=== PATIENT | male | born 1930 | race Caucasian/White ===

== ENCOUNTER 2020-06-03 09:33 | Inpatient (IN) | payer MEDICARE ==
[2020-05-31 11:07] VITALS: BMI 36.5
[~2020-06-03 09:33] MED LIST: Lidocaine 1% w/Epinephrine 1:100K 20 ML VIAL ONE
[2020-06-03] MEDS ORDERED: Lidocaine 1% MPF 2 ML VIAL ONE (09:38)
[2020-06-03] MEDS ORDERED: Dexamethasone 20 MG/5 ML VIAL ONE (09:42)
[2020-06-03] MEDS ORDERED: Rocuronium Bromide 10 MG/ML (10ML VIAL) ONE (09:42)
[2020-06-03] MEDS ORDERED: Fentanyl 100 MCG/2 ML VIAL ONE ×5 (09:42→14:13)
[2020-06-03] MEDS ORDERED: PROPOFOL 20 ML ONE ×2 (09:42→12:58)
[2020-06-03] MEDS ORDERED: Ondansetron PF 4 MG/2 ML Vial ONE (09:42)
[2020-06-03] MEDS ORDERED: Glycopyrrolate 0.2 MG/ML 5 ML SYRINGE ONE (09:42)
[2020-06-03] MEDS ORDERED: SUGAMMADEX SODIUM 500 MG/5 ML VIAL ONE (09:45)
[2020-06-03] MEDS ORDERED: CEFAZOLIN 1 GM VIAL ONE (10:25)
[2020-06-03] MEDS ORDERED: Phenylephrine 10 MG/ML VIAL ONE (10:25)
[2020-06-03] MEDS ORDERED: Esmolol 100 MG/10 ML VIAL ONE (12:38)
[2020-06-03] MEDS ORDERED: Labetalol HCl 100 MG/20 ML VIAL ONE (12:44)
[2020-06-03] MEDS ORDERED: Mupirocin 2% Ointment 22 GM Tube ONE (13:31)
[2020-06-03] MEDS ORDERED: HYDROcodone/Acetaminophen 5/325 mg Tablet PO PRN (13:57)
[2020-06-03] MEDS ORDERED: Ondansetron PF 4 MG/2 ML Vial IVP PRN (13:57)
[2020-06-03] MEDS ORDERED: Acetaminophen 325 MG TAB PO PRN ×2 (13:57→15:30)
[2020-06-03] MEDS ORDERED: Morphine 4 MG/ML VIAL SLOW IVP PRN (14:09)
[2020-06-03] MEDS ORDERED: Loperamide HCl 2 MG CAP PO PRN (14:15)
[2020-06-03] MEDS ORDERED: Metoprolol Tartrate 5 MG/5 ML VIAL ONE ×3 (14:23→15:06)
[2020-06-03] MEDS ORDERED: HYDROcodone/Acetaminophen 7.5/325 mg Tablet PO PRN (15:30)
[2020-06-03] MEDS ORDERED: Diltiazem HCl 125 MG, Admixture Fee 1 EACH in Sodium Chloride 0.9% 100 ML IVPB SCH (15:30)
[2020-06-03] MEDS ORDERED: Bisacodyl 5 MG TAB PO PRN (15:30)
[2020-06-03] MEDS: Furosemide 40 MG TAB PO SCH (16:56)
[2020-06-03] MEDS: Gabapentin 300 MG CAP PO SCH ×2 (17:00→20:20)
[2020-06-03] MEDS ORDERED: Chloraseptic Spray 180 ml Bottle PO PRN (17:26)
[2020-06-03 17:34] LABS: Anion Gap 15 mmol/L (10-20); BUN (Urea Nitrogen) 30 mg/dL (8.4-25.7); Calc. Creatinine Clearance 49 mL/min (70-130); Calcium 8.9 mg/dL (7.8-10.44); Carbon Dioxide 25 mmol/L (23-31); Chloride 102 mmol/L (98-107); Glucose 296 mg/dL (83-110); Potassium 5.1 mmol/L (3.5-5.1); Sodium 137 mmol/L (136-145)
[2020-06-03 17:38] LABS: Hemoglobin 14.4 g/dL (13.5-17.5); Mean Corpuscular HGB CONC 34.3 g/dL (32.0-36.0); Mean Corpuscular Hemoglobin 36.4 pg (27.0-33.0); Mean Corpuscular Volume 106.1 fl (81.2-95.1); Mean Platelet Volume 12.3 fl (7.4-10.4); Platelet Count 81 10x3/uL (150-450); RBC Distribution Width 14.6 % (11.5-14.5); Red Blood Cell (RBC) Count 3.96 10x6/uL (4.32-5.72); White Blood Cell (WBC) Count 9.5 10x3/uL (3.5-10.5)
[2020-06-03 18:26] LABS: Macrocytosis SLIGHT = 6-15 cells (100X) (0-5/hpf); Platelet Morphology Comment Appears Decreased
[2020-06-03] MEDS ORDERED: CEFAZOLIN 2 GM in Premix Bag 1 BAG IVPB SCH (18:30)
[2020-06-03] MEDS: CEFAZOLIN 1 GM in Sodium Chloride 0.9% 100 ML IVPB SCH (19:05)
[2020-06-03] MEDS: Famotidine 20 MG TAB PO SCH (20:20)
[2020-06-03] MEDS: Calcium Carbonate 500 MG ChewTAB PO SCH (20:20)
[2020-06-03] MEDS: Losartan Potassium 50 MG TAB PO SCH (20:20)
[2020-06-03] MEDS: prednisoLONE 1% Ophth Susp 5 ml Bottle EA EYE SCH (20:21)
[2020-06-03] MEDS: Metoprolol Tartrate 50 MG TAB PO SCH (20:21)
[2020-06-03] MEDS ORDERED: Calcium Carbonate 500 MG TAB PO SCH (21:00)
[2020-06-03 21:03] LABS: Bilirubin Neg (Negative); Blood, Urine Negative (Negative); Clarity Clear (Clear); Glucose, Urine (Dipstick) 50 mg/dL (Negative); Ketone, Urine Negative (Negative); Leukocyte Negative (Negative); Nitrite Negative (Negative); Protein, Urine (Dipstick) Negative (Neg-Trace); Specific Gravity, Urine 1.015 (1.002-1.036); Urobilinogen Normal mg/dL (Less than 2)
[2020-06-03 21:24] LABS: RBC/HPF 0-3 HPF (0-3); WBC/HPF None Seen HPF (0-3)
[2020-06-03 21:26] LABS: Bacteria/HPF Rare-Few HPF (None Seen); Squamous Epithelial 0-3 HPF (0-3)
[2020-06-03] MEDS ORDERED: CEFAZOLIN 1 GM VIAL SLOW IVP SCH (22:00)
[2020-06-03] MEDS: HumaLOG 300 UNITS/3 ML VIAL SC PRN (22:59)
[2020-06-03] MEDS ORDERED: Dextrose 50% Abboject 50 ML SYRINGE IVP PRN (23:00)
[2020-06-03] MEDS ORDERED: Dextrose 5% in Water 1,000 ML IV PRN (23:00)
[2020-06-04] MEDS: HumaLOG 300 UNITS/3 ML VIAL SC PRN ×4 (00:40→20:52)
[2020-06-04] MEDS: CEFAZOLIN 1 GM in Sodium Chloride 0.9% 100 ML IVPB SCH ×3 (02:37→17:14)
[2020-06-04 04:21] LABS: #Monocytes 1.2 10x3/uL (0.0-1.1); #Neutrophils 6.8 10x3/uL (1.5-8.4); %Basophils 0.1 % (0.0-2.0); %Lymphocytes 8.8 % (18.0-47.0); %Monocytes 13.3 % (0.0-10.0); %Neutrophils 77.3 % (40.0-75.0); Hemoglobin 13.3 g/dL (13.5-17.5); Mean Corpuscular HGB CONC 34.7 g/dL (32.0-36.0); Mean Corpuscular Volume 106.7 fl (81.2-95.1); Mean Platelet Volume 11.4 fl (7.4-10.4); Platelet Count 75 10x3/uL (150-450); RBC Distribution Width 14.7 % (11.5-14.5); Red Blood Cell (RBC) Count 3.59 10x6/uL (4.32-5.72); White Blood Cell (WBC) Count 8.9 10x3/uL (3.5-10.5)
[2020-06-04 04:34] LABS: Anion Gap 17 mmol/L (10-20); BUN (Urea Nitrogen) 37 mg/dL (8.4-25.7); Calc. Creatinine Clearance 47 mL/min (70-130); Calcium 8.4 mg/dL (7.8-10.44); Carbon Dioxide 22 mmol/L (23-31); Chloride 103 mmol/L (98-107); Glucose 294 mg/dL (83-110); Potassium 4.8 mmol/L (3.5-5.1); Sodium 137 mmol/L (136-145)
[2020-06-04] MEDS: Famotidine 20 MG TAB PO SCH ×2 (07:49→20:40)
[2020-06-04] MEDS: Calcium Carbonate 500 MG ChewTAB PO SCH ×2 (07:49→20:39)
[2020-06-04] MEDS: Gabapentin 300 MG CAP PO SCH ×3 (07:50→20:40)
[2020-06-04] MEDS: Losartan Potassium 50 MG TAB PO SCH ×2 (07:51→20:39)
[2020-06-04] MEDS: Metoprolol Tartrate 50 MG TAB PO SCH ×2 (07:51→20:40)
[2020-06-04] MEDS: Aspirin 81 mg Enteric Coated Tablet PO SCH (07:52)
[2020-06-04] MEDS ORDERED: VALACYCLOVIR 1000 MG PO SCH (09:00)
[2020-06-04] MEDS ORDERED: GLYBURIDE MICRONIZED 6 MG PO SCH (09:00)
[2020-06-04] MEDS ORDERED: Spironolactone 25 MG TAB PO SCH (09:00)
[2020-06-04] MEDS: prednisoLONE 1% Ophth Susp 5 ml Bottle EA EYE SCH ×2 (09:39→20:47)
[2020-06-04] MEDS: GLYBURIDE MICRONIZED 6 MG PO SCH (16:40)
[2020-06-04] MEDS ORDERED: Metoprolol Tartrate 50 MG TAB PO SCH (21:00)
[2020-06-04] MEDS: Metoprolol Tartrate 25 MG TAB PO SCH (21:02)
[2020-06-05] MEDS: CEFAZOLIN 1 GM in Sodium Chloride 0.9% 100 ML IVPB SCH ×2 (02:42→10:10)
[2020-06-05] MEDS: Losartan Potassium 50 MG TAB PO SCH (08:36)
[2020-06-05] MEDS: Calcium Carbonate 500 MG ChewTAB PO SCH (10:07)
[2020-06-05] MEDS: Aspirin 81 mg Enteric Coated Tablet PO SCH (10:07)
[2020-06-05] MEDS: Famotidine 20 MG TAB PO SCH (10:08)
[2020-06-05] MEDS: Metoprolol Tartrate 25 MG TAB PO SCH (10:08)
[2020-06-05] MEDS: Gabapentin 300 MG CAP PO SCH ×2 (10:08→16:06)
[2020-06-05] MEDS: GLYBURIDE MICRONIZED 6 MG PO SCH (10:10)
[2020-06-05] MEDS: prednisoLONE 1% Ophth Susp 5 ml Bottle EA EYE SCH (10:11)
[2020-06-05] MEDS: HumaLOG 300 UNITS/3 ML VIAL SC PRN (12:16)
[2020-06-05] MEDS: Furosemide 40 MG TAB PO SCH (16:06)
[2020-06-05 16:46] VITALS: BP 114/68; TEMP 97.5
[2020-06-05] MEDS ORDERED: Ergocalciferol 1.25 MG(50,000 UNITS) CAP PO SCH (17:30)
[2020-06-05] MEDS ORDERED: Apixaban 5 MG TAB PO SCH (21:00)
[2020-06-06] MEDS ORDERED: [UNRECOGNIZED DRUG - OTHER] SL SCH (09:00)
[2020-06-06] MEDS ORDERED: Simvastatin 10 MG TAB PO SCH (09:00)
[2020-06-06] MEDS ORDERED: LYCOP PO SCH (09:00)
[2020-06-06] MEDS ORDERED: [UNRECOGNIZED DRUG - OTHER] PO SCH (09:00)
[2020-06-06] MEDS ORDERED: CYANOCOBALAMIN 3000 MCG SL SCH (09:00)
[2020-06-06] MEDS ORDERED: DOXYCYCLINE HYCLATE 50 MG PO SCH (09:00)
[2020-06-06] MEDS ORDERED: FOLIC PO SCH (09:00)
[2020-06-06] MEDS ORDERED: FERROUS SULFATE 325 MG PO SCH (09:00)
[2020-06-06] MEDS ORDERED: VIT K PO SCH (09:00)
[2020-06-06] MEDS ORDERED: Warfarin Sodium 5 MG TAB PO SCH (09:00)
[2020-06-06] MEDS ORDERED: MULTIVIT MIN PO SCH (09:00)
[2020-06-06] MEDS ORDERED: FOLIC ACID 0.8 MG PO SCH (09:00)
== END 2020-06-05 18:30 | disposition home or self-care (01) | DRG 580 ==
LOC: CSHSDC 09:33 → CSHTELE 10:23 → CSHIMCU 14:23 → CSHTELE 06-05 02:25
PROVIDERS: ADMIT Otolaryngology Plastic Surgery within the Head & Neck; ATTEND Hospitalist
PROC: 07T20ZZ Resection of Left Neck Lymphatic, Open Approach (ICD-10-PCS; principal; 2020-06-03)
PROC: 0HB4XZZ Excision of Neck Skin, External Approach (ICD-10-PCS; 2020-06-03)
DX: C44.42 Squamous cell carcinoma of skin of scalp and neck (principal); C77.0 Secondary and unspecified malignant neoplasm of lymph nodes of head, face and neck; I48.0 Paroxysmal atrial fibrillation; I25.10 Atherosclerotic heart disease of native coronary artery without angina pectoris; E11.9 Type 2 diabetes mellitus without complications; I11.9 Hypertensive heart disease without heart failure; Z79.84 Long term (current) use of oral hypoglycemic drugs; Z79.82 Long term (current) use of aspirin; Z79.52 Long term (current) use of systemic steroids; Z79.01 Long term (current) use of anticoagulants; Z79.899 Other long term (current) drug therapy; E78.5 Hyperlipidemia, unspecified; Z90.89 Acquired absence of other organs; Z98.49 Cataract extraction status, unspecified eye; Z90.49 Acquired absence of other specified parts of digestive tract; Z96.659 Presence of unspecified artificial knee joint; Z94.7 Corneal transplant status; Z87.891 Personal history of nicotine dependence
CPT/HCPCS: 36415; 36416; 80048; 81001; 85007; 85025; 85027; 88305; 88307; 93005; 93010; 94760; J0690; J1100; J1815; J2370; J2405; J2704; J3010; J3490